=== PATIENT | male | born 1980 | race Caucasian/White ===

== ENCOUNTER 2024-03-23 06:40 | Day surgery (SDC) | payer OTHER, SELFPAY ==
--- NOTE | 2024-03-23 | PATH_ITS ---
[facility] Accession Number: [id number] No. of containers..01 Tissue . 01 Material submitted: . esophagus, E-G Junction - GE JUNCTION . 01 Diagnosis: GE JUNCTION: Squamous and focal squamocolumnar junctional mucosa with mild reactive changes suggestive of reflux. No goblet cell metaplasia or dysplasia identified. Eosinophils are not increased. [facility] 03/25/20241444 Local . 01 Electronically signed: . Vladislav Morales MD, Pathologist NPI- [id number] . 01 Gross description: . Received in formalin with two patient identifiers and GE junction, are two rod soft tissue fragments 0.4 to 0.6 cm in greatest dimension. Submitted in cassette A1. ([id number]) /[facility] 03/25/20241444 Local . 01 Pathologist provided ICD-10: K21.00 . 01 CPT . 993611 Specimen Comment: A courtesy copy of this report has been sent to [phone] Performed at: [address] [id number] MD Vladislav Morales MD Phone: [phone]
[2024-03-23 07:20] VITALS: BP 131/75; PULSE 51; RESP 17; TEMP 36.3; O2SAT 94
[2024-03-23] MEDS: LACTATED RINGERS 1,000 ML 42 ML IV (07:32)
--- NOTE | 2024-03-23 07:44 | PM.PREOP ---
Pre-operative Note Interval Note History & Physical reviewed/Exam performed by Physician: Yes Changes to H&P: No
[2024-03-23 08:02] VITALS: BP 114/68; PULSE 60; RESP 16; TEMP 36.8; O2SAT 99
--- NOTE | 2024-03-23 08:03 | PM.OP.EGD ---
Operative Date/Time/Diagnoses Date of procedure: 03/23/24 Time of procedure: 08:03 Pre-op diagnosis: GERD Post-op diagnosis: other (GERD with esophagitis) Procedure & Clinicians Study performed: Esophagogastroduodenoscopy Same procedure as scheduled: Yes Indications: 43-year-old man with chronic GERD here for upper endoscopy Surgeon: Parminder Rodriges Procedure Notes Procedure in detail: The history and physical was performed/updated and the patient is ASA class is 3. The procedure was discussed in detail with the patient. Potential risks complications including infection, bleeding, missed diagnosis, perforation, need for surgery, and were explained. Their questions were answered and informed consent was obtained. Patient placed in left lateral decubitus position. Time out was performed. Procedural sedation was administered by Anesthesia. A bite block was placed. the scope was inserted into the mouth and advanced through the esophagus and into the stomach. The pylorus was intubated and the duodenum was examined to the 2nd portion. The scope was then withdrawn into the stomach and was retroflexed. The stomach was decompressed and scope was withdrawn slowly through the esophagus. FINDINGS -small hiatal hernia -esophagitis of distal esophagus. Biopsies of GE junction were performed with forceps. The patient tolerated the procedure well and will be discharged when they meet criteria. Specimen(s): other (GE junction) Impression: GERD with esophagitis Post-procedure Plan for aftercare: Continue omeprazole 40 mg once or twice daily. Continue weight loss Tobacco cessation Disposition: same day surgery
[2024-03-23 08:07] VITALS: BP 116/78; PULSE 60; RESP 16; O2SAT 99
[2024-03-23 08:15] VITALS: BP 118/70; PULSE 606; RESP 99
[2024-03-23 08:16] VITALS: BP 120/62; PULSE 62; RESP 16; TEMP 36.6; O2SAT 99
[2024-03-23 08:25] VITALS: BP 118/72; PULSE 59; RESP 16; TEMP 36.8; O2SAT 99
== END 2024-03-23 08:25 | disposition home or self-care (01) ==
PROVIDERS: PCP Family Medicine; Referring Provider Surgery; Visit Provider Surgery
PROC: 0DJ08ZZ Inspection of Upper Intestinal Tract, Via Natural or Artificial Opening Endoscopic (ICD-10-PCS; CPT 43235; principal; 2024-03-23 07:45)
DX: K21.00 Gastro-esophageal reflux disease with esophagitis, without bleeding (principal); K44.9 Diaphragmatic hernia without obstruction or gangrene
CPT/HCPCS: 43239; J2704